=== PATIENT | male | born 1965 | race Caucasian/White ===

== ENCOUNTER 2019-08-18 05:52 | Inpatient (IN) ==
[~2019-08-18 05:52] MED LIST: MAGNESIUM SULF RIDER 2 GM in PREMIX 1 EACH IV PRN; POTASSIUM CHLORIDE RIDER 10 MEQ in PREMIX 1 EACH IV PRN
[2019-08-18] MEDS ORDERED: diphenhydrAMINE CAP 25 MG CAPSULE PO ONE (06:00)
[2019-08-18] MEDS ORDERED: ASPIRIN 325 MG TABLET PO ONE (06:00)
[2019-08-18] MEDS ORDERED: DIAZEPAM 5 MG TABLET PO ONE (06:00)
[2019-08-18] MEDS ORDERED: DIAZEPAM 5 MG TABLET ONE (06:37)
[2019-08-18] MEDS ORDERED: diphenhydrAMINE CAP 25 MG CAPSULE ONE (06:37)
[2019-08-18] MEDS ORDERED: ASPIRIN 325 MG TABLET ONE (06:37)
[2019-08-18] MEDS: SODIUM CHLORIDE 0.9% 1,000 ML IV SCH ×2 (06:39→15:16)
[2019-08-18] MEDS ORDERED: LIDOCAINE 1% 20 ML VIAL ONE (07:01)
[2019-08-18] MEDS ORDERED: VERAPAMIL 5 MG/2 ML VIAL ONE ×2 (07:25→08:22)
[2019-08-18] MEDS ORDERED: NITROGLYCERIN DRIP 50 MG/250 ML BOTTLE IV ONE (07:25)
[2019-08-18] MEDS ORDERED: MIDAZOLAM 2 MG/2 ML VIAL ONE ×4 (07:25→12:22)
[2019-08-18] MEDS ORDERED: HYDROmorphone 2 MG/1 ML VIAL ONE ×5 (07:25→13:55)
[2019-08-18] MEDS ORDERED: HEPARIN 5,000 UNIT/1 ML VIAL ONE ×2 (08:16→08:47)
[2019-08-18] MEDS ORDERED: TIROFIBAN 5,000 MCG/100 ML PREMIX IV ONE (09:49)
[2019-08-18] MEDS ORDERED: ALTEPLASE 2 MG VIAL ONE ×2 (10:34)
[2019-08-18] MEDS ORDERED: diphenhydrAMINE 50 MG/1 ML VIAL ONE (10:47)
[2019-08-18] MEDS ORDERED: ZALEPLON 5 MG CAPSULE PO PRN (11:26)
[2019-08-18] MEDS ORDERED: NITROGLYCERIN SL 0.4 MG TABLET SL PRN (11:26)
[2019-08-18] MEDS ORDERED: ONDANSETRON 4 MG/2 ML VIAL IV PRN (11:26)
[2019-08-18] MEDS ORDERED: CLOPIDOGREL 300 MG TABLET ONE (11:27)
[2019-08-18] MEDS ORDERED: ZOLPIDEM 10 MG PO PRN (11:29)
[2019-08-18] MEDS ORDERED: SODIUM CHLORIDE 0.9% 1,000 ML IV SCH (11:30)
[2019-08-18] MEDS ORDERED: ASPIRIN EC 81 MG TABLET PO SCH (11:30)
[2019-08-18] MEDS ORDERED: fentaNYL 25 MCG/HR PATCH TRANSDERM SCH (11:30)
[2019-08-18] MEDS ORDERED: ALTEPLASE 12 MG in SODIUM CHLORIDE 0.9% 240 ML IV SCH (12:00)
[2019-08-18] MEDS: HYDROmorphone 2 MG/1 ML VIAL IV PRN ×6 (12:22→19:53)
[2019-08-18] MEDS ORDERED: MIDAZOLAM 2 MG/2 ML VIAL IV ONE (12:22)
[2019-08-18 13:03] LABS: Basophils # 0.1 10*3/uL (0.0-0.2); Basophils % 0.6 % (0.0-0.8); Eosinophils # 0.3 10*3/uL (0.0-0.87); Eosinophils % 2.9 % (0.00-10.9); Hematocrit 38.9 VOL% (42.0-52.0); Hemoglobin 12.8 GM/DL (14.0-18.0); Immature Granulocytes % 0.1 %; Immature Granulocytes Absolute 0.01 #; Lymphocytes # 3.7 10*3/uL (1.4-4.0); Lymphocytes % 42.5 % (21.2-54.2); Mean Corpuscular HGB Conc 32.9 GM/DL (32-36); Mean Corpuscular Volume 109.9 FL (87-102); Mean Platelet Volume 9.5 FL (9.6-12.0); Monocytes % 5.9 % (1.7-12.7); Platelet Count 168 T/CUMM (130-400); Red Blood Count 3.54 MC/CUMM (3.8-5.5); Red Cell Distribution Width 11.6 % (9.3-17.3); White Blood Count 8.6 T/CUMM (4-12)
[2019-08-18 13:13] LABS: INR 1.1; PT Patient Result 11.5 SECS (9.6-12.2); Partial Thromboplastin Time 32.5 SECS (20.8-36.0)
[2019-08-18 16:36] VITALS: BP 132/76
[2019-08-18] MEDS ORDERED: BIMATOPROST 0.01% OPH SOLN 2.5 ML BOTTLE BOTH EYES SCH (21:00)
[2019-08-18] MEDS: BRIMONIDINE/TIMOLOL OPH SOLN 5 ML BOTTLE BOTH EYES SCH (22:51)
[2019-08-19] MEDS: SODIUM CHLORIDE 0.9% 1,000 ML IV SCH ×2 (01:09→11:36)
[2019-08-19] MEDS: HYDROmorphone 2 MG/1 ML VIAL IV PRN ×4 (01:09→11:08)
[2019-08-19 04:57] LABS: Basophils % 0.7 % (0.0-0.8); Eosinophils # 0.2 10*3/uL (0.0-0.87); Eosinophils % 3.3 % (0.00-10.9); Hematocrit 35.6 VOL% (42.0-52.0); Hemoglobin 11.8 GM/DL (14.0-18.0); Immature Granulocytes % 0.2 %; Immature Granulocytes Absolute 0.01 #; Lymphocytes # 2.2 10*3/uL (1.4-4.0); Lymphocytes % 37.8 % (21.2-54.2); Mean Corpuscular HGB Conc 33.1 GM/DL (32-36); Mean Corpuscular Volume 108.9 FL (87-102); Mean Platelet Volume 9.7 FL (9.6-12.0); Monocytes % 8.2 % (1.7-12.7); Neutrophils % 49.8 % (38.7-73.9); Platelet Count 136 T/CUMM (130-400); Red Blood Count 3.27 MC/CUMM (3.8-5.5); Red Cell Distribution Width 11.3 % (9.3-17.3); White Blood Count 5.8 T/CUMM (4-12)
[2019-08-19 04:58] LABS: INR 1.1; PT Patient Result 11.4 SECS (9.6-12.2)
[2019-08-19 05:18] LABS: Osmolality,Calculated 269.8 MOS/KG (273-304)
[2019-08-19] MEDS ORDERED: ENOXAPARIN 80 MG/0.8 ML SYRINGE SUBCUT ONE (06:30)
[2019-08-19] MEDS: BRIMONIDINE/TIMOLOL OPH SOLN 5 ML BOTTLE BOTH EYES SCH (08:13)
[2019-08-19] MEDS ORDERED: ASPIRIN CHEW 81 MG TABLET PO SCH (09:00)
[2019-08-19] MEDS ORDERED: CLOPIDOGREL 75 MG TABLET PO SCH (09:00)
[2019-08-19 11:49] LABS: Partial Thromboplastin Time 32.9 SECS (20.8-36.0)
[2019-08-19] MEDS ORDERED: NICOTINE 21 MG/24 HR PATCH TRANSDERM SCH (13:00)
[2019-08-19] MEDS ORDERED: HYDROmorphone 2 MG/1 ML VIAL ONE (14:10)
[2019-08-19] MEDS ORDERED: MIDAZOLAM 2 MG/2 ML VIAL ONE (14:10)
== END 2019-08-19 19:36 | disposition home or self-care (01) | DRG 253 ==
LOC: N.CL 05:52 → N.CC 11:30
PROVIDERS: ADMIT Internal Medicine Cardiovascular Disease; ATTEND Internal Medicine Cardiovascular Disease

== ENCOUNTER 2020-06-13 19:21 | Inpatient (IN) ==
[2020-06-13] MEDS ORDERED: ALBUTEROL/IPRATROPIUM 3 ML NEB RESP TX ONE ×2 (19:27)
[2020-06-13] MEDS ORDERED: methylPREDNISolone SOD SUC 125 MG/2 ML VIAL IV STA (19:30)
[2020-06-13] MEDS ORDERED: SODIUM CHLORIDE 0.9% 1,000 ML IV STA ×2 (19:30→20:38)
[2020-06-13] MEDS ORDERED: ALBUTEROL/IPRATROPIUM 3 ML NEB RESP TX STA ×2 (19:30→21:59)
[2020-06-13] MEDS ORDERED: ASPIRIN 325 MG TABLET PO STA (19:30)
[2020-06-13] MEDS ORDERED: ONDANSETRON 4 MG/2 ML VIAL IV ONE ×2 (19:30→20:46)
[2020-06-13] MEDS ORDERED: ALBUTEROL 2.5 MG/3 ML NEB RESP TX STA (19:30)
[2020-06-13 19:51] LABS: Basophils # 0.1 10*3/uL (0.0-0.2); Basophils % 0.6 % (0.0-0.8); Eosinophils # 0.5 10*3/uL (0.0-0.87); Eosinophils % 3.1 % (0.00-10.9); Hematocrit 43.9 VOL% (42.0-52.0); Hemoglobin 14.6 GM/DL (14.0-18.0); Immature Granulocytes % 0.4 %; Immature Granulocytes Absolute 0.06 #; Lymphocytes # 6.9 10*3/uL (1.4-4.0); Lymphocytes % 47.7 % (21.2-54.2); Mean Corpuscular HGB Conc 33.3 GM/DL (32-36); Mean Corpuscular Volume 107.3 FL (87-102); Mean Platelet Volume 9.3 FL (9.6-12.0); Monocytes % 6.6 % (1.7-12.7); Neutrophils % 41.6 % (38.7-73.9); Platelet Count 240 T/CUMM (130-400); Red Blood Count 4.09 MC/CUMM (3.8-5.5); White Blood Count 14.5 T/CUMM (4-12)
[2020-06-13 19:59] LABS: ABG Base Excess -0.3 MMOL/L (-2.5-2.5); ABG HCO3 24.2 MMOL/L (20-26); ABG Oxygen Saturation 98.9 % (95-100); ABG PH 7.326 (7.35-7.45); ABG TCO2 23.4 MMOL/L (23-27)
[2020-06-13 20:02] LABS: Alanine Aminotransferase 24 U/L (16-61); Albumin 3.3 G/DL (3.4-5.0); Alkaline Phosphatase 137 U/L (45-117); Aspartate Amino Transferase 48 U/L (0-37); Blood Urea Nitrogen 8 MG/DL (7-18); Calcium 8.4 MG/DL (8.5-10.1); Estimated Glom Filtration Rate 92 ML/MIN; Glucose 122 MG/DL (74-106); Total Protein 7.2 G/DL (6.4-8.3); Troponin I < 0.015 NG/ML (0.00-0.045)
[2020-06-13 20:33] LABS: INR 1.1; PT Patient Result 11.4 SECS (9.8-11.9)
[2020-06-13] MEDS ORDERED: MORPHINE 4 MG/1 ML VIAL IV ONE (20:46)
[2020-06-13 21:42] LABS: Eosinophils 7 % (0-10); Lymphocytes 43 % (20-55); Segmented Neutrophils 39 % (50-85); Total Cells Counted 100
[2020-06-13 21:43] LABS: Macrocytosis 1+; Platelet Estimate Adequate
[2020-06-13 21:44] LABS: Anisocytosis Slight; Hypochromasia Slight
[2020-06-13] MEDS ORDERED: cefTRIAXone 1,000 MG in SODIUM CHLORIDE 0.9% 100 ML IV STA (21:47)
[2020-06-13] MEDS ORDERED: AZITHROMYCIN INJ 500 MG in SODIUM CHLORIDE 0.9% 250 ML IV STA (21:47)
[2020-06-13] MEDS ORDERED: ONDANSETRON 4 MG/2 ML VIAL IV PRN (22:29)
[2020-06-13] MEDS ORDERED: NICOTINE 21 MG/24 HR PATCH TRANSDERM PRN (22:29)
[2020-06-13] MEDS ORDERED: AZITHROMYCIN INJ 500 MG in SODIUM CHLORIDE 0.9% 250 ML IV SCH (23:00)
[2020-06-14] MEDS: ALBUTEROL/IPRATROPIUM 3 ML NEB RESP TX SCH ×2 (01:31→07:48)
[2020-06-14] MEDS ORDERED: methylPREDNISolone SOD SUC 40 MG/1 ML VIAL IV SCH (04:00)
[2020-06-14 05:09] LABS: Basophils % 0.2 % (0.0-0.8); Hematocrit 39.4 VOL% (42.0-52.0); Hemoglobin 13.7 GM/DL (14.0-18.0); Immature Granulocytes % 0.3 %; Immature Granulocytes Absolute 0.02 #; Lymphocytes # 1.1 10*3/uL (1.4-4.0); Lymphocytes % 16.7 % (21.2-54.2); Mean Corpuscular HGB Conc 34.8 GM/DL (32-36); Mean Corpuscular Volume 105.3 FL (87-102); Mean Platelet Volume 9.6 FL (9.6-12.0); Monocytes % 1.7 % (1.7-12.7); Neutrophils % 81.1 % (38.7-73.9); Platelet Count 192 T/CUMM (130-400); Red Blood Count 3.74 MC/CUMM (3.8-5.5); Red Cell Distribution Width 11.8 % (9.3-17.3); White Blood Count 6.5 T/CUMM (4-12)
[2020-06-14 05:33] LABS: Calcium 8.7 MG/DL (8.5-10.1)
[2020-06-14 08:22] VITALS: BP 129/82
[2020-06-14] MEDS ORDERED: ENOXAPARIN 40 MG/0.4 ML SYRINGE SUBCUT SCH (09:00)
[2020-06-14] MEDS ORDERED: BRIMONIDINE/TIMOLOL OPH SOLN 5 ML BOTTLE BOTH EYES SCH (09:00)
[2020-06-14] MEDS ORDERED: AZITHROMYCIN 250 MG TABLET PO SCH (09:00)
[2020-06-14] MEDS ORDERED: PANTOPRAZOLE 40 MG TABLET PO SCH (09:00)
[2020-06-14] MEDS ORDERED: CLOPIDOGREL 75 MG TABLET PO SCH (09:00)
[2020-06-14] MEDS ORDERED: cefTRIAXone 1,000 MG in SYRINGE 1 EACH IV SCH (21:00)
[2020-06-14] MEDS ORDERED: ATORVASTATIN 40 MG TABLET PO SCH (21:00)
== END 2020-06-14 08:24 | disposition left against medical advice (07) | DRG 189 ==
LOC: N.ED 19:21 → N.EDINP 22:29 → SUATTDRO 22:29 → N.EDINP 06-14 08:16
PROVIDERS: ADMIT Internal Medicine; ATTEND Internal Medicine